=== PATIENT | female | born 1995 | race Caucasian/White ===

== ENCOUNTER 2017-06-09 23:25 | Emergency (ER) | payer BC ==
[2017-06-10 00:03] VITALS: BP 105/67; PULSE 81; RESP 20; TEMP 98.2; O2SAT 97
--- NOTE | 2017-06-10 00:42 | C.PDOC ---
History Of Present Illness 22 year old female who presents to the ER with a complaint of a boil to the right buttock since Thursday that began to have minimal draining today. Patient state she recently returned from vacation where she had a mud bath and is worried it is from that. Denies pain, fever, or chills. Time Seen by Provider: 06/10/17 00:11 Chief Complaint (Nursing): Abnormal Skin Integrity History Per: Patient History/Exam Limitations: no limitations Onset/Duration Of Symptoms: Hrs Current Symptoms Are (Timing): Still Present Location Of Injury: Right: Buttock Quality Of Symptoms: Draining Recent travel outside of the [place]: No Past Medical History Reviewed: Historical Data, Nursing Documentation, Vital Signs Vital Signs: Last Vital Signs Temp 98.2 F 06/09/17 23:58 Pulse 81 06/09/17 23:58 Resp 20 06/09/17 23:58 BP 105/67 06/09/17 23:58 Pulse Ox 97 06/10/17 00:46 - Medical History PMH: Asthma Surgical History: No Surg Hx Family History: States: Unknown Family Hx - Social History Hx Alcohol Use: No Hx Substance Use: No - Immunization History Hx Tetanus Toxoid Vaccination: Yes Hx Influenza Vaccination: Yes Hx Pneumococcal Vaccination: Yes Review Of Systems Constitutional: Negative for: Fever, Chills Skin: Positive for: Other (boil) Physical Exam - Physical Exam Appears: Non-toxic, No Acute Distress Skin: Warm, Dry, Other (Small area of induration and erythema to right lower gluteal fold with small central pustule. Nonfluctuant, no streaking.) Head: Atraumatic, Normacephalic Oral Mucosa: Moist Extremity: Normal ROM (x4), No Tenderness Neurological/Psych: Oriented x3, Normal Speech, Normal Cognition ED Course And Treatment O2 Sat by Pulse Oximetry: 97 (Room air) Pulse Ox Interpretation: Normal Progress Note: Explained to patient that need for I&D is not indicated at this time; advised to keep a warm compress on it and to follow up for wound check in 2 days. Disposition - Disposition Disposition: HOME/ ROUTINE Disposition Time: 00:39 Condition: STABLE Additional Instructions: Please follow up with PMD in 2 days Apply warm compress to area Take meds as directed Return to ER if worse Prescriptions: Cephalexin [cephalexin] 500 mg PO QID #20 cap Ibuprofen [Motrin] 600 mg PO Q6H #30 tab Instructions: Folliculitis (ED) Forms: [facility] (Dutch) - Clinical Impression Clinical Impression: Folliculitis - Scribe Statement The provider has reviewed the documentation as recorded by the Scribeunice Rashid All medical record entries made by the Scribe were at my direction and personally dictated by me. I have reviewed the chart and agree that the record accurately reflects my personal performance of the history, physical exam, medical decision making, and the department course for this patient. I have also personally directed, reviewed, and agree with the discharge instructions and disposition.
== END 2017-06-10 00:54 | disposition home or self-care (01) ==
LOC: C.ER 23:25
DX: L73.9 Follicular disorder, unspecified (principal)